=== PATIENT | male | born 1955 | race Caucasian/White ===

== ENCOUNTER 2017-04-19 11:16 | Emergency (ER) | payer OTHER ==
[2017-04-19 11:37] VITALS: BP 183/125
[2017-04-19 12:29] LABS: Basophils % (Auto) 0.5 % (0.0-1.8); Eosinophils % (Auto) 8.3 % (0.0-4.3); Hematocrit 42.7 % (35.5-45.6); Mean Corpuscular HGB Conc 33 % (32-34); Mean Corpuscular Hemoglobin 27 pg (28-32); Mean Corpuscular Volume 83 fl (84-94); Platelet Count 242 K/mm3 (140-440); Red Blood Count 5.15 M/mm3 (3.65-5.03); Red Cell Distribution Width 15.2 % (13.2-15.2); White Blood Count 7.9 K/mm3 (4.5-11.0)
[2017-04-19 12:30] LABS: Albumin 4.1 g/dL (3.9-5); Albumin/Globulin Ratio 1.1 %; BUN/Creatinine Ratio 18.46; Bilirubin,Total 0.3 mg/dL (0.1-1.2); Calcium 9.1 mg/dL (8.4-10.2); Chloride 103.7 mmol/L (98-107); Potassium 4.1 mmol/L (3.6-5.0); Total Protein 7.7 g/dL (6.3-8.2)
== END 2017-04-19 20:50 | disposition left against medical advice (07) ==
LOC: ED 11:16
DX: R10.9 Unspecified abdominal pain (principal); Z53.21 Procedure and treatment not carried out due to patient leaving prior to being seen by health care provider
CPT/HCPCS: 36415; 80053; 83690; 85025; 93005; 93010